=== PATIENT | female | born 1990 | race Caucasian/White ===

== ENCOUNTER → 2021-12-19 13:44 | Outpatient (BNVA) | payer BC, MEDICAID, SELFPAY | PROVIDERS: Family Provider Family Medicine; PCP Family Medicine; Visit Provider Obstetrics & Gynecology | DX: Z34.90 Encounter for supervision of normal pregnancy, unspecified, unspecified trimester (principal) | CPT/HCPCS: 80307; 81000; 82950; 84443; 85025; 86592; 86762; 86803; 86850; 86900; 87086; 87340; 87491; 87591; 87661; 87806; 88175 ==

== ENCOUNTER → 2022-01-12 13:22 | Outpatient (BNVA) | payer BC, MEDICAID, SELFPAY | PROVIDERS: Family Provider Family Medicine; PCP Family Medicine; Visit Provider Obstetrics & Gynecology | DX: O09.899 Supervision of other high risk pregnancies, unspecified trimester (principal); O23.40 Unspecified infection of urinary tract in pregnancy, unspecified trimester; B95.1 Streptococcus, group B, as the cause of diseases classified elsewhere; O34.219 Maternal care for unspecified type scar from previous cesarean delivery; E66.01 Morbid (severe) obesity due to excess calories; Z68.45 Body mass index [BMI] 70 or greater, adult; Z86.19 Personal history of other infectious and parasitic diseases | CPT/HCPCS: 81000; 87086 ==

== ENCOUNTER → 2022-02-12 11:08 | Outpatient (BNVA) | payer BC, MEDICAID, SELFPAY | PROVIDERS: Family Provider Family Medicine; PCP Family Medicine; Visit Provider Obstetrics & Gynecology | DX: O09.899 Supervision of other high risk pregnancies, unspecified trimester (principal); Z3A.00 Weeks of gestation of pregnancy not specified | CPT/HCPCS: 81000 ==

== ENCOUNTER → 2022-03-05 14:43 | Outpatient (BNVA) | payer BC, MEDICAID, SELFPAY | PROVIDERS: Family Provider Family Medicine; PCP Family Medicine; Visit Provider Obstetrics & Gynecology | DX: O09.899 Supervision of other high risk pregnancies, unspecified trimester (principal); Z3A.24 24 weeks gestation of pregnancy | CPT/HCPCS: 76816 ==

== ENCOUNTER → 2022-03-09 09:48 | Outpatient (BNVA) | payer BC, MEDICAID, SELFPAY | PROVIDERS: Family Provider Family Medicine; PCP Family Medicine; Visit Provider Obstetrics & Gynecology | DX: O09.899 Supervision of other high risk pregnancies, unspecified trimester (principal); Z3A.00 Weeks of gestation of pregnancy not specified | CPT/HCPCS: 81000 ==

== ENCOUNTER → 2022-04-06 09:53 | Outpatient (BNVA) | payer BC, MEDICAID, SELFPAY | PROVIDERS: Family Provider Family Medicine; PCP Family Medicine; Visit Provider Obstetrics & Gynecology | DX: O09.899 Supervision of other high risk pregnancies, unspecified trimester (principal); Z3A.00 Weeks of gestation of pregnancy not specified | CPT/HCPCS: 81000; 82950; 85025 ==

== ENCOUNTER → 2022-04-20 11:18 | Outpatient (BNVA) | payer BC, MEDICAID, SELFPAY | PROVIDERS: Family Provider Family Medicine; PCP Family Medicine; Visit Provider Obstetrics & Gynecology | DX: O09.899 Supervision of other high risk pregnancies, unspecified trimester (principal); Z3A.00 Weeks of gestation of pregnancy not specified | CPT/HCPCS: 81000 ==

== ENCOUNTER → 2022-05-04 13:00 | Outpatient (BNVA) | payer BC, MEDICAID, SELFPAY | PROVIDERS: Family Provider Family Medicine; PCP Family Medicine; Visit Provider Obstetrics & Gynecology | DX: O09.899 Supervision of other high risk pregnancies, unspecified trimester (principal); Z3A.00 Weeks of gestation of pregnancy not specified | CPT/HCPCS: 81000 ==

== ENCOUNTER → 2022-05-18 15:00 | Outpatient (BNVA) | payer BC, MEDICAID, SELFPAY | PROVIDERS: Family Provider Family Medicine; PCP Family Medicine; Visit Provider Obstetrics & Gynecology | DX: O09.899 Supervision of other high risk pregnancies, unspecified trimester (principal); Z3A.00 Weeks of gestation of pregnancy not specified | CPT/HCPCS: 81000; 85025 ==

== ENCOUNTER → 2022-06-01 10:00 | Outpatient (BNVA) | payer BC, MEDICAID, SELFPAY | PROVIDERS: Family Provider Family Medicine; PCP Family Medicine; Visit Provider Obstetrics & Gynecology | DX: O09.899 Supervision of other high risk pregnancies, unspecified trimester (principal); Z3A.00 Weeks of gestation of pregnancy not specified | CPT/HCPCS: 81000; 87081 ==

== ENCOUNTER → 2022-06-08 11:00 | Outpatient (BNVA) | payer BC, MEDICAID, SELFPAY | PROVIDERS: Family Provider Family Medicine; PCP Family Medicine; Visit Provider Obstetrics & Gynecology | DX: O09.899 Supervision of other high risk pregnancies, unspecified trimester (principal); Z3A.00 Weeks of gestation of pregnancy not specified | CPT/HCPCS: 81000 ==

== ENCOUNTER → 2022-06-18 10:00 | Outpatient (BNVA) | payer BC, MEDICAID, SELFPAY | PROVIDERS: PCP Family Medicine; Visit Provider Obstetrics & Gynecology | DX: O09.899 Supervision of other high risk pregnancies, unspecified trimester (principal); Z3A.00 Weeks of gestation of pregnancy not specified | CPT/HCPCS: 81000 ==

== ENCOUNTER 2022-06-23 05:14 | Inpatient (IN) | payer BC, MEDICAID, SELFPAY ==
--- NOTE | 2022-06-08 14:20 | PC.SOCIAL ---
PEDRO called Dr. Hastings office and had to leave a message on the nurse line in regards to possible wound vac placement.
--- NOTE | 2022-06-18 09:09 | ANES.PREANE2 ---
Pre-Anesthetic Assessment Height/Weight: Height 1.68 m Operation Date: 06/23/22 07:00 Proposed Procedures p Repeat section 35827, bilateral tubal ligation 53190 O34.219,Z30.2(Bilateral) - Latasha Hastings MD Familial anesthetic complications: None Social No alcohol and No tobacco Exam alert, oriented x 3, clear to auscultation bilaterally and regular rate & rhythm Airway Mallampati: Class III Dentition: full Pulmonary Patient currently having postnasal drip, congestion, and sinus drainage - states allergy related. She has some worry about her ability to breathe while laying flat for the procedure Metabolic Morbid Obesity Anesthetic Plan ASA status: 2 Risk of > 500 ml blood loss (7ml/kg in children): No Other Pertinent Information Previous was emergency and was a general, no history of epidural before Medications/Allergies Home Medications Medication Instructions Recorded Confirmed Last Taken Type PNV 153-FA 400 mcg-om3 35 mg-dha tab PO 12/19/21 06/08/22 Unknown History 25 mg-epa 5 mg-fish oil chew tablet ( Gummies) metoclopramide HCl 5 mg tablet 5 mg PO Q6H PRN nausea and 01/26/22 06/08/22 Unknown Rx (Reglan) vomiting #90 tabs ondansetron HCl 4 mg tablet 4 mg PO Q6H PRN nausea and 01/26/22 06/08/22 Unknown Rx vomiting #30 tabs ferrous sulfate 325 mg (65 mg 325 mg PO DAILY 05/18/22 06/08/22 Unknown History iron) tablet (Iron (ferrous sulfate)) Allergies Allergy/AdvReac Type Severity Reaction Status Date / Time No Known Allergies Allergy Verified 06/08/22 11:00 [facility] Anesthesia Medical History No pertinent past medical history Surgical History History of 2009 History of cholecystectomy 2011 Family History Grandmother Cancer unsure of type Mother Breast cancer Grandfather Diabetes Maternal Other Family history of premature coronary artery disease Denies family history of CAD (coronary artery disease) Clotting disorder Hyperlipidemia Chronic kidney disease (CKD) Bleeding disorder Hypertension Thyroid disease Stroke Data Anesthesia Cardiac Studies: No Data to Display
[2022-06-23] VITALS (92 sets, daily range): BP systolic 115–180; BP diastolic 68–100; PULSE 69–114; RESP 16–20; TEMP 35.9–36.8; O2SAT 89–100
[2022-06-23] MEDS: lactated ringers 1,000 ML 999 ML IV (05:49)
[2022-06-23 05:50] LABS: Basophils % 0.2 %; Eosinophils # 0.1 10^3/uL (0.0-0.8); Eosinophils % 0.7 %; Hematocrit 35.3 % (37.0-47.0); Lymphocytes # 1.7 10^3/uL (0.8-4.8); Lymphocytes % 16.2 %; Mean Corpuscular HGB Conc 31.2 g/dL (30.0-36.0); Mean Corpuscular Hemoglobin 27.7 pg (28.0-34.0); Mean Corpuscular Volume 88.9 fl (81-99); Monocytes # 0.4 10^3/uL (0.2-0.9); Monocytes % 4.1 %; Neutrophils # 8.36 10^3/uL (1.8-7.7); Neutrophils % 78.3 %; Nucleated Red Blood Cells % 0 %; Platelet Count 258 10^3/cmm (130-400); Red Blood Count 3.97 10^6/uL (4.1-5.3); Red Cell Distribution Width 14.6 % (12.1-15.1); White Blood Count 10.7 10^3/uL (4.0-10.0)
[2022-06-23 06:02] LABS: Anion Gap 13.6 (5-19); Blood Urea Nitrogen 11 mg/dL (6-20); Calcium 8.1 mg/dL (8.5-10.5); Carbon Dioxide 23 mmol/L (22-29); Chloride 101 mmol/L (98-107); Glomerular Filtration Rate 115.9 mL/min (90-130); Glucose 85 mg/dL (65-115); Osmolality Calculated 277 mOsm/kg (285-295); Potassium 3.6 mmol/L (3.5-5.1); Sodium 134 mmol/L (136-145)
--- NOTE | 2022-06-23 06:37 | P.ANESUD_ITS ---
Pre-Anesthetic Update Pre-Anesthetic Assessment: Date of Surgery/Procedure: 06/23/22 Proposed Procedure: Operation Date: 06/23/22 07:00 Proposed Procedures p Repeat section 70924, bilateral tubal ligation 09620 O34.219,Z3 0.2(Bilateral) - Latasha Hastings MD Any changes to Pre-Anesthetic Assessment?: No Last Intake: Intake Last Liquid Date 06/22/22 Last Liquid Time 22:00 Last Solid Date 06/22/22 Last Solid Time 19:30 Labs Last 48hrs: Short CBC 06/23/22 Range/Units 05:35 WBC 10.7 H (4.0-10.0) 10^3/ uL Hgb 11.0 L (11.5-15.3) g/dL Hct 35.3 L (37.0-47.0) % MCV 88.9 (81-99) fl Plt Count 258 (130-400) 10^3/c mm Neut % (Auto) 78.3 % Neut # (Auto) 8.36 H (1.8-7.7) 10^3/u L BMP 06/23/22 05:35 Sodium 134 L Potassium 3.6 Chloride 101 Carbon Dioxide 23 BUN 11 Creatinine 0.6 Glucose 85 Calcium 8.1 L Vitals: Temperature 96.6 F L 06/23/22 05:52 Pulse Rate 82 06/23/22 06:23 Pulse Rhythm 06/23/22 05:02 Pulse Strength 3+ Normal 06/23/22 05:02 Respiratory Rate 18 06/23/22 05:51 Respiratory Effort Non-Labored 06/23/22 05:02 Respiratory Depth Normal 06/23/22 05:02 Respiratory Patter n 06/23/22 05:02 Blood Pressure 142/88 06/23/22 06:23 Oxygen Delivery Me thod 06/23/22 05:02 Exam: Pre-Anes Outpt Exam: alert, oriented x 3, clear to auscultation bilaterally and regular rate & rhythm Cardiac Studies: No Data to Display
[2022-06-23] MEDS: metoclopramide 5 mg/mL SDV 2 mL 10 MG IVP (06:55)
[2022-06-23] MEDS: famotidine 20 mg/2 mL INJ IVP (06:56)
[2022-06-23] MEDS: citric acid-sodium citrate 30 mL UDC PO (06:56)
[2022-06-23] MEDS: ceFAZolin 2,000 MG in sodium chloride 0.9% (plus) 50 ML 100 MG IV (07:00)
--- NOTE | 2022-06-23 07:03 | W.PM.OPSUD ---
Surgery/Procedure H&P Update DATE OF PROCEDURE: June 23, 2022 DATE H&P PERFORMED: 06/18/22 H&P UPDATE INFORMATION: I have reviewed H&P completed within last 30 days, I have examined patient prior to procedure and No changes to prior documentation PRIMARY INDICATION FOR PROCEDURE: iup@39 weeks 1 days, previous , desires sterilization, morbid obesity PLANNED PROCEDURE: Operation Date: 06/23/22 07:00 Proposed Procedures p Repeat section 84867, bilateral tubal ligation 43380 O34.219,Z30.2(Bilateral) - Latasha Hastings MD
--- NOTE | 2022-06-23 09:06 | PM.OP ---
Operative Report Date of procedure: June 23, 2022 Pre-op diagnosis: iup@39w1d, GBS positive, history of wound infection, previous , morbid obesity Post-op diagnosis: same Post-op diagnosis: same, delivered Post-op findings: term male . single nuchal cord reduced at the incision Procedure done: repeat with bilateral salpingectomy Specimens removed/disposition: placenta, bilateral fallopian tubes to pathology Surgeon: Latasha Hastings Anesthesia: Other (spinal) Estimated blood loss (mL): 400 IV fluids (mL): 1,100 Urine output (mL): 10 Complications: none Findings: term male in the cephalic presentation, normal appearing uterus, tubes and ovaries Condition: stable Disposition: PACU Procedure: The patient was taken to the operating room where spinal anesthesia was administered and found to be adequate. A Traxi retractor was used to hold the pannus. She was prepped and draped in the normal sterile fashion in the dorsal supine position with a leftward tilt. A Pfannenstiel skin incision was made and carried down to the underlying layer of fascia. The fascia was nicked in the midline and extended laterally with the Mitchell scissors. The fascia was then tented up and the rectus muscles dissected off sharply. The rectus muscles were and the peritoneum entered bluntly with the digit. The peritoneal incision was extended superiorly and inferiorly with good visualization of the bladder. The Rodney O retractor was placed. It was clear of any bowel or omentum. A low transverse uterine incision was made and carried down to the bag of water. The bag of water was ruptured and the uterine incision extended cephalocaudad. The scalp was grasped and brought through the incision. The nose and mouth were bulb suctioned. The shoulders and body delivered atraumatically. The baby was allowed to rest, while being dried, for 1 minute and then the cord was clamped and cut. The baby was handed to the waiting attractions associate. The placenta was delivered by expression. The uterus was exteriorized and cleared of all clots and debris. The uterine incision was closed with 0 Vicryl in a running fashion. A second imbricating layer of 3-0 Monocryl was used to close the uterus. There was excellent hemostasis. The Rodney O retractor was removed. Attention was then turned to the salpingectomy portion of the procedure. The left fallopian tube was grasped with an allis clamp and elevated. Using a cautery device and starting at the cornua, the mesosalpinx was cauterized and divided down to the the fimbria of the fallopian tube. The entire tube was removed. There was excellent hemostasis. The right tube was removed in the same manner. The uterus was returned to the abdomen. The peritoneum was closed with 3-0 Monocryl, incorporating the rectus muscle. The fascia was closed with 0 Vicryl in 2 separate sutures overlapping in the midline. The skin was closed with O-Vicryl in a subcuticular stitch. It was bolstered with steri strips. Apgars on baby 9 at 1 minute and 9 at 5 minutes. weight 7 pounds 3 ounces. Mother and baby were stable post delivery.
--- NOTE | 2022-06-23 10:22 | PC.SOCIAL ---
CM to OB to speak to patient, nurse Alana informed CM that wound vac was not placed, and didnt need CM.
--- NOTE | 2022-06-23 13:48 | ANE.PACU2 ---
Inpatient post-anesthesia follow up: Airway intact: Yes Vital signs: Temperature 97.6 F Pulse Rate 96 Respiratory Rate 16 Blood Pressure 137/78 Pulse Oximetry 100 Oxygen Delivery Me thod Room Air Oxygen Flow Rate Fraction of Inspir ed Oxygen Hydration adequate: Yes Nausea and vomiting: No Pain level: 2 Mental status: Baseline
[2022-06-23] MEDS: dextrose 5%-lactated ringers 1,000 ML 125 ML IV (16:02)
[2022-06-23] MEDS: ketorolac 30 mg/mL INJ IVP ×2 (16:02→22:11)
[2022-06-23] MEDS: ferrous sulfate EC 325 mg Tablet PO (17:44)
[2022-06-23] MEDS: docusate sodium 100 mg Capsule PO (17:45)
[2022-06-23] MEDS: ceFAZolin 3,000 MG in sodium chloride 0.9% (100 ml) 100 ML 200 MG IV (17:50)
[2022-06-23 21:33] LABS: Hematocrit 31.5 % (37.0-47.0); Hemoglobin 9.9 g/dL (11.5-15.3); Mean Corpuscular HGB Conc 31.4 g/dL (30.0-36.0); Mean Corpuscular Hemoglobin 28.2 pg (28.0-34.0); Mean Corpuscular Volume 89.7 fl (81-99); Platelet Count 262 10^3/cmm (130-400); Red Blood Count 3.51 10^6/uL (4.1-5.3); Red Cell Distribution Width 14.8 % (12.1-15.1)
[2022-06-24 02:35] VITALS: BP 123/91; PULSE 94; TEMP 36.7
[2022-06-24] MEDS: ceFAZolin 3,000 MG in sodium chloride 0.9% (100 ml) 100 ML 200 MG IV (03:40)
[2022-06-24] MEDS: ketorolac 30 mg/mL INJ IVP (04:27)
--- NOTE | 2022-06-24 06:08 | PC.NURSE ---
this nurse observed pt sleeping while holding baby in the chair. woke pt and advised that dad needed to take baby or baby needed to be placed in crib. reeducated on safe sleeping and baby was placed in crib.
[2022-06-24] MEDS: prenatal vitamin Capsule 1 CAP PO (08:37)
[2022-06-24] MEDS: ferrous sulfate EC 325 mg Tablet PO ×2 (08:37→17:54)
--- NOTE | 2022-06-24 08:37 | P.PN_ITS ---
Subjective Subjective: The patient has done well overnight. The traxi came off. She has been able to ambulate. Pain is well controlled Vitals/I&O/Wt Last Vital Signs Temp 98.0 F 06/24/22 02:35 Pulse 94 06/24/22 02:35 Resp 18 06/23/22 23:00 BP 123/91 06/24/22 02:35 Pulse Ox 92 06/23/22 15:25 O2 Del Method 06/23/22 17:49 06/23/22 06/24/22 06/24/22 22:59 06:59 14:59 Intake Total 100 / 200 Output Total 250 / 480 400 / 880 Balance -150 / -280 -400 / -680 Weight last 48 hrs Weight 470 lb Physical Exam Const: COMMON NORMALS: no acute distress, patient oriented x3 and alert GENERAL APPEARANCE: cooperative, comfortable, well kempt and well developed ORIENTATION/CONSCIOUSNESS: Yes awake, Yes oriented to person, Yes oriented to place and Yes oriented to time Resp: COMMON NORMALS: normal respiratory effort EFFORT & INSPECTION: Yes able to speak in complete sentences GI: COMMON NORMALS: Soft to palpation and non-tender PALPATION: Yes Soft to palpation Extremity: COMMON NORMALS: no calf tenderness Neuro: COMMON NORMALS: patient oriented x3 SENSORIUM/ORIENTATION: Yes alert, Yes oriented to person, Yes oriented to place and Yes oriented to time Psych: APPEARANCE: Yes well kempt Urinary Catheter Management: Gallagher: Cath Placed During This Visit: yes, but has since been removed by the nurse Reason for Continuing Indwelling Catheter: Decision to DC Catheter Urinary Catheter Date of Insertion: 06/23/22 Urinary Catheter Time of Insertion: 07:20 Date Urinary Catheter Removed: 06/24/22 Time Urinary Catheter Discontinued: 02:40 Data 06/23/22 21:25 06/23/22 05:35 A&P Assessment and plan (1) Postoperative state: doing well plan for silver dressing to be placed today. Traxi may be removed. Encourage ambulation today likely home tomorrow Attestations Medical Necessity Statement*: The patient had a repeat yesterday. S he will be here at least another night. Coding Level of Care Code Acute Director Of Loss Prevention for Mariola Odonnell Diagnoses Postoperative state Z98.890
[2022-06-24 08:39] VITALS: BP 121/64; PULSE 94
[2022-06-24 08:40] VITALS: TEMP 36.8
[2022-06-24] MEDS: HYDROcodone-acetaminophen 5-325 mg Tablet PO ×2 (12:18→19:52)
[2022-06-24] MEDS: ibuprofen 800 mg tablet PO ×2 (15:15→20:57)
[2022-06-24 16:44] VITALS: BP 134/89; PULSE 88
[2022-06-24 16:46] VITALS: TEMP 36.8
[2022-06-24] MEDS: simethicone 80 mg Chew PO (17:54)
[2022-06-24 21:00] VITALS: BP 130/73; PULSE 95
[2022-06-25 03:48] VITALS: BP 142/86; PULSE 91
[2022-06-25 03:53] VITALS: RESP 16; TEMP 36.9
--- NOTE | 2022-06-25 06:22 | PM.DCS ---
Discharge Providers Date of Admission: 06/23/22 05:14 Date of Discharge: June 25, 2022 Attending Provider at Admission: Latasha Hastings MD Attending Provider at Discharge: Latasha Hastings MD Primary Care Provider: Aleks Oviedo MD Diagnoses at Discharge Discharge Diagnosis (1) Postoperative state: Status: Acute Reason for Visit Reason for Visit: pre reg and pre op Hospital Course Hospital Course The patient was admitted for a repeat and bilateral tubal ligation. She has a previous history of wound infection. A silver dressing was placed on the incision on POD#1 On POD#2, the patient wanted to be discharged home, but was still very sedentary. She only got up from her chair to use the bathroom. I decided to placed her on anticoagulation for the period to avoid a possible DVT. I explained to the patient the importance of taking the shot and that it was once daily. We had the conversation about breast feeding and that if she stopped at some time in the period, we could change to a pill. She is currently and supplementing with formula. She verbalized understanding and was given a dose of lovenox prior to discharge. Physical Exam Const: COMMON NORMALS: no acute distress, patient oriented x3 and alert GENERAL APPEARANCE: cooperative, comfortable, well kempt and well developed ORIENTATION/CONSCIOUSNESS: Yes awake, Yes oriented to person, Yes oriented to place and Yes oriented to time Resp: COMMON NORMALS: normal respiratory effort GI: COMMON NORMALS: Soft to palpation and non-tender PALPATION: Yes Soft to palpation Extremity: COMMON NORMALS: no calf tenderness Neuro: COMMON NORMALS: patient oriented x3 SENSORIUM/ORIENTATION: Yes alert, Yes oriented to person, Yes oriented to place and Yes oriented to time Psych: APPEARANCE: Yes well kempt Urinary Catheter Management: Gallagher: Cath Placed During This Visit: yes, but has since been removed by the nurse Reason for Continuing Indwelling Catheter: Decision to DC Catheter Urinary Catheter Date of Insertion: 06/23/22 Urinary Catheter Time of Insertion: 07:20 Date Urinary Catheter Removed: 06/24/22 Time Urinary Catheter Discontinued: 02:40 Discharge Data Studies Completed and Pending Completed Studies During Hospitalization Category Date Time Status Pathology: Surgical [PTH] Routine Pth 06/23/22 09:14 Completed Laboratory Results WBC 12.0 10^3/uL (4.0-10.0) H 06/23/22 21:25 RBC 3.51 10^6/uL (4.1-5.3) L 06/23/22 21:25 Hgb 9.9 g/dL (11.5-15.3) L 06/23/22 21:25 Hct 31.5 % (37.0-47.0) L 06/23/22 21:25 MCV 89.7 fl (81-99) 06/23/22 21:25 MCH 28.2 pg (28.0-34.0) 06/23/22 21:25 MCHC 31.4 g/dL (30.0-36.0) 06/23/22 21:25 RDW 14.8 % (12.1-15.1) 06/23/22 21:25 Plt Count 262 10^3/cmm (130-400) 06/23/22 21:25 MPV 11.0 fL (7.4-10.4) H 06/23/22 21:25 Neut % (Auto) 78.3 % 06/23/22 05:35 Lymph % (Auto) 16.2 % 06/23/22 05:35 [place] % (Auto) 4.1 % 06/23/22 05:35 Eos % (Auto) 0.7 % 06/23/22 05:35 Baso % (Auto) 0.2 % 06/23/22 05:35 Neut # (Auto) 8.36 10^3/uL (1.8-7.7) H 06/23/22 05:35 Lymph # (Auto) 1.7 10^3/uL (0.8-4.8) 06/23/22 05:35 [place] # (Auto) 0.4 10^3/uL (0.2-0.9) 06/23/22 05:35 Eos # (Auto) 0.1 10^3/uL (0.0-0.8) 06/23/22 05:35 Baso # (Auto) 0.0 10^3/uL (0.0-0.1) 06/23/22 05:35 Nucleated RBC % (auto) 0 % 06/23/22 05:35 Nucleated RBCs # 0.0 /100WBC 06/23/22 05:35 Sodium 134 mmol/L (136-145) L 06/23/22 05:35 Potassium 3.6 mmol/L (3.5-5.1) 06/23/22 05:35 Chloride 101 mmol/L (98-107) 06/23/22 05:35 Carbon Dioxide 23 mmol/L (22-29) 06/23/22 05:35 Anion Gap 13.6 (5-19) 06/23/22 05:35 BUN 11 mg/dL (6-20) 06/23/22 05:35 Creatinine 0.6 mg/dL (0.5-0.9) 06/23/22 05:35 GFR Calculation 115.9 mL/min (90-130) 06/23/22 05:35 Glucose 85 mg/dL (65-115) 06/23/22 05:35 Calculated Osmolality 277 mOsm/kg (285-295) L 06/23/22 05:35 Calcium 8.1 mg/dL (8.5-10.5) L 06/23/22 05:35 Blood Type O Positive 06/23/22 05:35 Rho(D) Type Positive 06/23/22 05:35 Vitals Last Vital Signs Temp 98.4 F 06/25/22 03:53 Pulse 91 06/25/22 03:48 Resp 16 06/25/22 03:53 BP 142/86 06/25/22 03:48 Pulse Ox 92 06/23/22 15:25 O2 Del Method 06/23/22 17:49 Discharge Plan Discharge Patient Disposition: Home Condition: Stable Prescriptions: New ibuprofen 800 mg Tablet 800 mg PO TID Qty: 30 0RF hydrocodone-acetaminophen 5-325 mg Tablet 1 tab PO Q4H PRN (Reason: Moderate To Severe Pain) Qty: 30 0RF docusate sodium 100 mg Capsule 100 mg PO BID Qty: 60 0RF enoxaparin 40 mg/0.4 mL Syringe 40 mg SUBCUT Q24H Qty: 20 0RF Continued Gummies 400 mcg-35 mg- 25 mg-5 mg tablet,chewable 1 tab PO DAILY ferrous sulfate [Iron (ferrous sulfate)] 325 mg (65 mg iron) tablet 325 mg PO DAILY ondansetron HCl 4 mg tablet 4 mg PO Q6H PRN (Reason: nausea and vomiting) Qty: 30 2RF metoclopramide HCl [Reglan] 5 mg tablet 5 mg PO Q6H PRN (Reason: nausea and vomiting) Qty: 90 2RF Rx Instructions: Take medication on schedule every 6 hours Discharge Orders: Discharge Order (Routine); Ordered 06/25/22 Ordered By: Latasha Hastings Patient Instructions: Opioid Safety Assessment: postop state Plan of Treatment: discharge home today lovenox 40 mg daily call with any questions or concerns follow up in 1 week for incision check and dressing removal. Discharge Attestations Time Spent in Discharge Care*: greater than 30 min Quality Metrics Clinical Quality Measures [ No reported AMI, CVA or VTE this stay] Coding Level of Care Code Acute g FW DC note Diagnoses Postoperative state Z98.890
[2022-06-25] MEDS: HYDROcodone-acetaminophen 5-325 mg Tablet PO (07:20)
[2022-06-25] MEDS: prenatal vitamin Capsule 1 CAP PO (09:50)
[2022-06-25] MEDS: docusate sodium 100 mg Capsule PO (09:50)
[2022-06-25] MEDS: enoxaparin 40 mg/0.4 mL Syringe SUBCUT (09:50)
[2022-06-25] MEDS: ibuprofen 800 mg tablet PO (09:50)
[2022-06-25] MEDS: ferrous sulfate EC 325 mg Tablet PO (09:50)
[2022-06-25 10:45] VITALS: BP 146/77; PULSE 136; RESP 17; TEMP 37.3
[2022-06-25 10:46] VITALS: BP 146/77; PULSE 136
== END 2022-06-25 10:55 | disposition home or self-care (01) | DRG 785 ==
PROVIDERS: Admitting Provider Obstetrics & Gynecology; PCP Family Medicine; Visit Provider Obstetrics & Gynecology
PROC: 10D00Z1 Extraction of Products of Conception, Low, Open Approach (ICD-10-PCS; CPT 59514; principal; 2022-06-23 07:00)
DX: O34.211 Maternal care for low transverse scar from previous cesarean delivery (principal); O99.824 Streptococcus B carrier state complicating childbirth; O99.214 Obesity complicating childbirth; E66.01 Morbid (severe) obesity due to excess calories; O69.81X0 Labor and delivery complicated by cord around neck, without compression, not applicable or unspecified; Z3A.39 39 weeks gestation of pregnancy; Z37.0 Single live birth; Z86.19 Personal history of other infectious and parasitic diseases; Z30.2 Encounter for sterilization
CPT/HCPCS: 36415; 51702; 59025; 59409; 80048; 85025; 85027; 86900; 88302; 96372; 96374; 96376; J0690; J1650; J1885; J2274; J2370; J2590; J2765; J3010; J3490; J7120; J7121

== ENCOUNTER 2022-07-11 17:01 | Inpatient (IN) | payer BC, SELFPAY ==
[2022-07-11 17:09] VITALS: BP 146/90; PULSE 110; RESP 16; TEMP 37.4; O2SAT 99
--- NOTE | 2022-07-11 19:26 | W.ED.GENADLT ---
HPI - General Adult General: Chief complaint: General Medical Stated complaint: possible infection of surgical site Time Seen by Provider: 07/11/22 19:25 History of Present Illness: Ms. Richards is a 32-year-old lady with significant past medical history of morbid obesity presenting to the emergency department for concern over postoperative wound infection. The patient underwent repeat section with bilateral salpingectomy on 06/23. She does have a history of being GBS positive and history of wound infection. She was evaluated on 06/29 and diagnosed with postoperative hematoma. Over the past 2 to 3 days she has noticed increased drainage, redness, pain, and foul-smelling odor. She denies fevers or associated signs of systemic illness. Intensity symptoms is moderate to severe. Course is worsened. She has not had significant improvement with NSAIDs or acetaminophen. No other specific changes in health, exacerbating, or alleviating factors identified. Onset (ago): day(s) Location: abdomen Severity: moderate Pain Consistency: constant Exacerbating factors: movement Associated symptoms: Reports fevers/chills, malaise and other Review of Systems General: Reports: 10 or more systems reviewed and unremarkable except in HPI and below Const: Reports: malaise PFSH ED PFSH: Medical History GBS (group B Streptococcus carrier), +RV culture, currently GBS (group B streptococcus) UTI complicating History of wound infection No pertinent past medical history Postoperative wound infection Supervision of other high-risk Surgical History History of 2009 History of cholecystectomy 2012 Previous delivery affecting Family History Grandmother Cancer unsure of type Mother Breast cancer Grandfather Diabetes Maternal Other Family history of premature coronary artery disease Denies family history of CAD (coronary artery disease) Clotting disorder Hyperlipidemia Chronic kidney disease (CKD) Bleeding disorder Hypertension Thyroid disease Stroke Physical Exam Const: COMMON NORMALS: alert GENERAL APPEARANCE: cooperative, well developed and ill appearing HENMT: COMMON NORMALS: normocephalic and atraumatic HEAD & SCALP: normocephalic and atraumatic Eye: COMMON NORMALS: conjunctivae normal CONJUNCTIVA: Yes conjunctivae normal SCLERA: sclerae normal Neck/C-Spine: COMMON NORMALS: supple GENERAL: Yes trachea midline Resp: COMMON NORMALS: clear to auscultation bilaterally EFFORT & INSPECTION: Yes able to speak in complete sentences AUSCULTATION: clear to auscultation bilaterally Cardio: COMMON NORMALS: regular rhythm RATE: tachycardic RHYTHM: regular rhythm GI: COMMON NORMALS: Soft to palpation PALPATION: Yes Soft to palpation, Yes Tenderness to palpation present (GI), No Guarding due to palpation present (GI) and No Rigid due to palpation OTHER: incision with areas of superficial dehiscence with purulent brown drainage and skin induration with erythema concerning for wound infection. There is no evidence of remote peritonitis or acute surgical abdomen. No evidence of deep layer dehiscence. Extremity: GENERAL: Yes normal exam except as noted and No edema Neuro: COMMON NORMALS: moves all extremities SENSORIUM/ORIENTATION: Yes alert and No Orientation impaired Psych: COMMON NORMALS: mental status grossly normal and Normal thought process present THOUGHT PROCESS: Normal thought process present Course Vital Signs: Vital signs: Vital Signs Temperature 98.6 F 07/13/22 03:58 Pulse Rate 97 07/13/22 13:29 Respiratory Rate 15 07/13/22 03:58 Blood Pressure 144/79 07/13/22 13:29 Pulse Oximetry 97 07/13/22 03:54 Oxygen Delivery Me thod 07/11/22 23:43 MDM - General Adult Medical Decision Making 32-year-old lady with history of morbid obesity presenting for concern over postoperative wound infection. Clinical exam as above. Patient is tachycardic but no evidence of acute surgical abdomen. Labs with no leukocytosis, normocytic anemia which is mildly worse than prior, normal platelet count. Metabolic panel with perhaps mild dehydration though similar to prior. CT obtained given exam findings and clinical history. There is an abscess in the subcutaneous tissue down to the rectus abdominis muscle with cellulitis. Patient treated with IV fluids and broad-spectrum antibiotics. Also given antiemetic and antipyretic. Discussed case with BELLING MACHINE OPERATOR on-call and patient will be admitted to the BELLING MACHINE OPERATOR service for postoperative infection. The results of ED evaluation were discussed with the patient including plan for admission due to requirement for level of care not available if discharged to prevent significant worsening/deterioration. Patient agreeable with plan. Medical Records I reviewed the patient's medical records. Lab Data I reviewed the patient's lab results. 07/12/22 04:03 07/12/22 04:03 Radiology Impressions Abdomen/Pelvis CT 07/11/22 19:34 IMPRESSION: 1. There is an abscess in the subcutaneous soft tissues of the lower abdomen/pelvis extending into the underlying rectus abdominus muscle with adjacent soft tissue cellulitis as described above. 2. Splenomegaly. Laboratory Results WBC 9.9 10^3/uL (4.0-10.0) 07/11/22 19:44 RBC 3.19 10^6/uL (4.1-5.3) L 07/11/22 19:44 Hgb 8.7 g/dL (11.5-15.3) L 07/11/22 19:44 Hct 28.5 % (37.0-47.0) L 07/11/22 19:44 MCV 89.3 fl (81-99) 07/11/22 19:44 MCH 27.3 pg (28.0-34.0) L 07/11/22 19:44 MCHC 30.5 g/dL (30.0-36.0) 07/11/22 19:44 RDW 14.9 % (12.1-15.1) 07/11/22 19:44 Plt Count 385 10^3/cmm (130-400) 07/11/22 19:44 MPV 10.1 fL (7.4-10.4) 07/11/22 19:44 Neut % (Auto) 64.6 % 07/11/22 19:44 Lymph % (Auto) 22.6 % 07/11/22 19:44 [place] % (Auto) 10.0 % 07/11/22 19:44 Eos % (Auto) 1.9 % 07/11/22 19:44 Baso % (Auto) 0.4 % 07/11/22 19:44 Neut # (Auto) 6.38 10^3/uL (1.8-7.7) 07/11/22 19:44 Lymph # (Auto) 2.2 10^3/uL (0.8-4.8) 07/11/22 19:44 [place] # (Auto) 1.0 10^3/uL (0.2-0.9) H 07/11/22 19:44 Eos # (Auto) 0.2 10^3/uL (0.0-0.8) 07/11/22 19:44 Baso # (Auto) 0.0 10^3/uL (0.0-0.1) 07/11/22 19:44 Nucleated RBC % (auto) 0 % 07/11/22 19:44 Nucleated RBCs # 0.0 /100WBC 07/11/22 19:44 Sodium 135 mmol/L (136-145) L 07/11/22 19:44 Potassium 3.7 mmol/L (3.5-5.1) 07/11/22 19:44 Chloride 99 mmol/L (98-107) 07/11/22 19:44 Carbon Dioxide 25 mmol/L (22-29) 07/11/22 19:44 Anion Gap 14.7 (5-19) 07/11/22 19:44 BUN 9 mg/dL (6-20) 07/11/22 19:44 Creatinine 0.7 mg/dL (0.5-0.9) 07/11/22 19:44 GFR Calculation 97.0 mL/min (90-130) 07/11/22 19:44 Glucose 121 mg/dL (65-115) H 07/11/22 19:44 Calculated Osmolality 280 mOsm/kg (285-295) L 07/11/22 19:44 Lactic Acid 0.8 mmol/L (0.5-2.2) 07/11/22 19:44 Calcium 8.6 mg/dL (8.5-10.5) 07/11/22 19:44 Total Bilirubin 0.4 mg/dL (0.15-1.2) 07/11/22 19:44 AST 13 U/L (0-32) 07/11/22 19:44 ALT 15 U/L (0-33) 07/11/22 19:44 Alkaline Phosphatase 90 U/L (35-105) 07/11/22 19:44 Total Protein 7.0 g/dL (6.6-8.7) 07/11/22 19:44 Albumin 3.4 g/dL (3.5-5.2) L 07/11/22 19:44 Globulin 3.6 g/dL (1.3-4.6) 07/11/22 19:44 Critical Care Time Critical Care Time: Critical Care Time: Yes Total Critical Care Time: 35 Attestation: Due to a high probability of clinically significant, possibly life threatening deterioration, the patient required my highest level of attention and preparedness to intervene emergently and I personally spent this critical care time directly and personally managing the patient. This critical care time included obtaining a history; examining the patient; pulse oximetry; ordering and review of laboratory and imaging studies; arranging urgent treatment with development of a management plan; evaluation of patient's response to treatment; frequent reassessment; and, discussions with other providers as applicable. It was exclusive of separately billable procedures. Primary system involved is infectious disease complicated by recent surgical history and morbid obesity. Discharge Plan Discharge Patient Disposition: Admitted As Inpatient Admit Provider: Yesica Brush Clinical Impression: Postoperative wound infection, Morbid obesity with BMI of 70 and over, adult Condition: Stable Discharge Diet: Regular Discharge Activity: Increase activity as tolerated Coding Level of Care Code ED Marine Welder for Mariola Odonnell
--- NOTE | 2022-07-11 19:34 | CTR_ITS ---
PROCEDURE INFORMATION: Exam: CT Abdomen And Pelvis With Contrast Exam date and time: 07/11/2022 8:12 PM Age: 32 years old Clinical indication: Other: Post op x2.5 weeks, drainage, cellulitis; Prior surgery; Surgery date: <1 month; Patient HX: 2.5 weeks post op ; Additional info: Post c section drainage/cellulitis, eval deep abscess TECHNIQUE: Imaging protocol: Computed tomography of the abdomen and pelvis with contrast. Radiation optimization: All CT scans at this facility use at least one of these dose optimization techniques: automated exposure control; mA and/or kV adjustment per patient size (includes targeted exams where dose is matched to clinical indication); or iterative reconstruction. Contrast material: OMNI 350; Contrast volume: 100 ml; Contrast route: INTRAVENOUS (IV); COMPARISON: US OB follow up [facility] 06/09/2022 10:13 AM RADIATION DOSE METRICS: Total DLP (mGy-cm): 1343.6 FINDINGS: Liver: Normal. No mass. Gallbladder and bile ducts: The gallbladder has been removed. Pancreas: Normal. No ductal dilation. Spleen: The spleen is enlarged measuring 15.2 centimetres. Adrenal glands: Normal. No mass. Kidneys and ureters: Normal. No hydronephrosis. Stomach and bowel: Unremarkable. No obstruction. No mucosal thickening. Appendix: No evidence of appendicitis. Intraperitoneal space: Unremarkable. No free air. No significant fluid collection. Vasculature: Unremarkable. No abdominal aortic aneurysm. Lymph nodes: Unremarkable. No enlarged lymph nodes. Urinary bladder: Unremarkable as visualized. Reproductive: There is artifact obscuring portions of the pelvis. The uterus is not well seen. Bones/joints: Unremarkable. No acute fracture. Soft tissues: There is complex fluid density and air in the subcutaneous soft tissues adjacent to the incision site extending into the underlying rectus abdominus muscles measuring 20.6 x 3.7 cm in the transverse/AP dimensions, consistent with an abscess formation. Overlying skin surface in this region is obscured secondary to the patient's pannus formation. There is skin thickening in this region and adjacent cellulitis. Underlying distal rectus abdominus muscles are heterogeneous and contain foci of air. CT/CT abdomen pelvis w con* [id number] IMPRESSION: 1. There is an abscess in the subcutaneous soft tissues of the lower abdomen/pelvis extending into the underlying rectus abdominus muscle with adjacent soft tissue cellulitis as described above. 2. Splenomegaly.
[2022-07-11 19:58] LABS: Basophils % 0.4 %; Eosinophils # 0.2 10^3/uL (0.0-0.8); Eosinophils % 1.9 %; Hematocrit 28.5 % (37.0-47.0); Hemoglobin 8.7 g/dL (11.5-15.3); Lymphocytes # 2.2 10^3/uL (0.8-4.8); Lymphocytes % 22.6 %; Mean Corpuscular HGB Conc 30.5 g/dL (30.0-36.0); Mean Corpuscular Hemoglobin 27.3 pg (28.0-34.0); Mean Corpuscular Volume 89.3 fl (81-99); Mean Platelet Volume 10.1 fL (7.4-10.4); Neutrophils # 6.38 10^3/uL (1.8-7.7); Neutrophils % 64.6 %; Nucleated Red Blood Cells % 0 %; Platelet Count 385 10^3/cmm (130-400); Red Blood Count 3.19 10^6/uL (4.1-5.3); Red Cell Distribution Width 14.9 % (12.1-15.1); White Blood Count 9.9 10^3/uL (4.0-10.0)
[2022-07-11] MEDS: iohexol 350 mg/mL 500 mL Btl (per mL) IV (20:15)
[2022-07-11 20:19] LABS: Alanine Aminotransferase 15 U/L (0-33); Albumin Level 3.4 g/dL (3.5-5.2); Alkaline Phosphatase 90 U/L (35-105); Anion Gap 14.7 (5-19); Aspartate Amino Transferase 13 U/L (0-32); Blood Urea Nitrogen 9 mg/dL (6-20); Calcium 8.6 mg/dL (8.5-10.5); Carbon Dioxide 25 mmol/L (22-29); Chloride 99 mmol/L (98-107); Globulin 3.6 g/dL (1.3-4.6); Glucose 121 mg/dL (65-115); Osmolality Calculated 280 mOsm/kg (285-295); Potassium 3.7 mmol/L (3.5-5.1); Sodium 135 mmol/L (136-145); Total Bilirubin 0.4 mg/dL (0.15-1.2)
[2022-07-11 20:20] LABS: Lactic Sepsis W/Reflex 0.8 mmol/L (0.5-2.2)
[2022-07-11 20:30] VITALS: BP 148/84; PULSE 98; RESP 18; O2SAT 98
[2022-07-11] MEDS: piperacillin-tazobactam 4.5 GM in sodium chloride 0.9% (plus) 50 ML IV (21:11)
[2022-07-11 21:36] VITALS: BP 154/99; PULSE 93; RESP 16; O2SAT 99
[2022-07-11 22:00] VITALS: BP 144/84; PULSE 100; RESP 16; O2SAT 98
[2022-07-11 23:06] VITALS: BMI 75.8
[2022-07-11 23:20] VITALS: BP 133/56; PULSE 94
[2022-07-11 23:35] VITALS: TEMP 36.7
[2022-07-12 04:09] LABS: Basophils % 0.4 %; Eosinophils # 0.2 10^3/uL (0.0-0.8); Eosinophils % 1.8 %; Hemoglobin 8.6 g/dL (11.5-15.3); Lymphocytes # 1.9 10^3/uL (0.8-4.8); Lymphocytes % 20.6 %; Mean Corpuscular HGB Conc 30.7 g/dL (30.0-36.0); Mean Corpuscular Volume 88.1 fl (81-99); Monocytes # 0.9 10^3/uL (0.2-0.9); Monocytes % 10.2 %; Neutrophils # 5.95 10^3/uL (1.8-7.7); Neutrophils % 66.3 %; Nucleated Red Blood Cells % 0 %; Platelet Count 368 10^3/cmm (130-400); Red Blood Count 3.18 10^6/uL (4.1-5.3); Red Cell Distribution Width 14.9 % (12.1-15.1)
[2022-07-12 04:11] VITALS: BP 135/63; PULSE 96
[2022-07-12 04:13] VITALS: TEMP 37.1; O2SAT 98
[2022-07-12 04:43] LABS: Alanine Aminotransferase 13 U/L (0-33); Albumin Level 3.5 g/dL (3.5-5.2); Alkaline Phosphatase 86 U/L (35-105); Aspartate Amino Transferase 13 U/L (0-32); Blood Urea Nitrogen 7 mg/dL (6-20); Calcium 8.4 mg/dL (8.5-10.5); Carbon Dioxide 25 mmol/L (22-29); Chloride 102 mmol/L (98-107); Globulin 3.2 g/dL (1.3-4.6); Glucose 100 mg/dL (65-115); Osmolality Calculated 282 mOsm/kg (285-295); Sodium 137 mmol/L (136-145); Total Bilirubin 0.3 mg/dL (0.15-1.2); Total Protein 6.7 g/dL (6.6-8.7)
[2022-07-12 04:52] LABS: Anion Gap 13.9 (5-19); Potassium 3.9 mmol/L (3.5-5.1)
[2022-07-12] MEDS: piperacillin-tazobactam 4.5 GM in sodium chloride 0.9% (plus) 50 ML IV ×2 (06:07→15:43)
[2022-07-12] MEDS: vancomycin 1,500 MG/300 ML PIGGYBACK 200 MG IV ×3 (06:38→22:14)
--- NOTE | 2022-07-12 07:05 | PC.NURSE ---
This nurse, Gracie Flores RN, Kierra COTTRELL, and Valencia WARREN visualized the incision at this time. The previous dressing of 2 telfa pads and 2 ABD pads were removed and saturated with dark brown and black thin fluid. Upon removal of the dressing, a large amount of the same colored fluid was seeping from the incision site. This nurse noted a foul smell to the fluid and incision site. This nurse cleaned the site and dried it. 2 telfa pads and 2 ABD pads were placed in a sterile fashion to the site and secured.
--- NOTE | 2022-07-12 12:58 | PM.OPHPUD ---
Labor & Delivery H&P Update Date of Procedure: July 12, 2022 Date H&P Performed: 06/18/22 H&P update information: I have reviewed H&P completed within last 30 days (32-year-old female admitted after being seen in the emergency room with postop abscess.) Admission Diagnosis: Postop wound abscess Morbid obesity Other information: Patient seen this a.m. after nursing staff complained of wound with malodorous discharge. Dressing removed and wound cleaned with peroxide and packed with iodoform gauze. Wound probed and affected area extensive (length of incision),but fascia appears intact. Discussed with General surgeon, he recommended cleaning and packing, but advised not to totally open for wound vac. Related Problem List Diagnoses (1) Postoperative wound infection: (2) Postoperative hematoma: (3) History of wound infection: (4) Morbid obesity with BMI of 70 and over, adult:
[2022-07-12 13:19] VITALS: BP 140/73; PULSE 96
[2022-07-12] MEDS: acetaminophen 325 mg Tablet 650 MG PO (13:43)
[2022-07-12 15:36] VITALS: BP 132/78; PULSE 104; TEMP 36.8
[2022-07-12 23:12] VITALS: BP 136/78; PULSE 93
--- NOTE | 2022-07-13 00:06 | P.PN_ITS ---
IMPROVEMENT NURSE Subjective Subjective: Interval history: Pt doing well, no complaints, sitting at bedside with baby. Discussed wound care. Pt understands. Vitals/I&O/Wt Last Vital Signs Temp 98.2 F 07/12/22 15:36 Pulse 93 07/12/22 23:12 Resp 16 07/11/22 22:00 BP 136/78 07/12/22 23:12 Pulse Ox 98 07/12/22 04:13 O2 Del Method 07/11/22 23:43 07/12/22 07/12/22 07/13/22 14:59 22:59 06:59 Intake Total 350 / 350 1300 / 1650 Balance 350 / 350 1300 / 1650 Weight last 48 hrs Weight 213.188 kg Weight 213.188 kg Physical Exam Back/Pelvis: OTHER: Abd- soft, Incision packing removed with small amount of brownish discharge. Packing was saturated. Wound cleaned with H2O2 with much less discharge and clots noted. Wound repacked and bandage applied. Data 07/12/22 04:03 07/12/22 04:03 Micro: Microbiology 07/11/22 19:37 Blood Culture - Preliminary Blood NEGATIVE TO DATE 07/11/22 19:44 Blood Culture - Preliminary Blood NEGATIVE TO DATE 07/11/22 19:46 Gram Stain - Final Other Source A&P Assessment and plan (1) Postoperative wound infection: A. S/p Repeat C/section P. Continue present care. (2) Postoperative hematoma: (3) History of wound infection: (4) Morbid obesity with BMI of 70 and over, adult: Attestations Medical Necessity Statement*: Continued need for Wound care. Coding Level of Care Code Acute Code for Chg Fwd Diagnoses Postoperative wound infection T81.49XA Postoperative hematoma History of wound infection Z86.19 Morbid obesity with BMI of 70 and over, adult E66.01; Z68.45
[2022-07-13 00:13] LABS: Vancomycin Trough 40.3 ug/mL (10-15)
[2022-07-13] MEDS: piperacillin-tazobactam 4.5 GM in sodium chloride 0.9% (plus) 50 ML IV ×2 (00:23→09:15)
[2022-07-13 03:54] VITALS: BP 119/61; PULSE 89; O2SAT 97
[2022-07-13 03:58] VITALS: RESP 15; TEMP 37
[2022-07-13 06:21] LABS: Basophils % 0.4 %; Eosinophils # 0.4 10^3/uL (0.0-0.8); Eosinophils % 4.8 %; Hematocrit 27.2 % (37.0-47.0); Hemoglobin 8.1 g/dL (11.5-15.3); Lymphocytes # 1.7 10^3/uL (0.8-4.8); Lymphocytes % 22.6 %; Mean Corpuscular HGB Conc 29.8 g/dL (30.0-36.0); Mean Corpuscular Hemoglobin 26.5 pg (28.0-34.0); Mean Corpuscular Volume 88.9 fl (81-99); Mean Platelet Volume 9.7 fL (7.4-10.4); Monocytes # 0.8 10^3/uL (0.2-0.9); Monocytes % 10.9 %; Neutrophils # 4.46 10^3/uL (1.8-7.7); Neutrophils % 60.6 %; Nucleated Red Blood Cells % 0 %; Platelet Count 371 10^3/cmm (130-400); Red Blood Count 3.06 10^6/uL (4.1-5.3); White Blood Count 7.4 10^3/uL (4.0-10.0)
[2022-07-13 06:46] LABS: Vancomycin Trough 16.3 ug/mL (10-15)
[2022-07-13] MEDS: vancomycin 1,500 MG/300 ML PIGGYBACK 200 MG IV (07:42)
[2022-07-13 09:17] VITALS: BP 133/73; PULSE 91
--- NOTE | 2022-07-13 11:09 | PM.OBGYDC ---
Discharge Providers [employer] TECHNICIAN Date of Admission: 07/11/22 22:12 Date of Discharge: 07/13/22 Attending Provider at Admission: Yesica Brush DO Attending Provider at Discharge: Yesica Brush DO Primary Care Provider: Latasha Hastings MD Diagnoses at Discharge Discharge Diagnosis (1) Postoperative wound infection: Status: Acute (2) Postoperative hematoma: Details from hospital stay: Pt seen for wound care, much less discharge but it did stain dressing thru the night. No odor noted today. Much improved. Cleaned with peroxide and pack with Iodoform guze. Discussed home health for continued wound care. Pt understands. Status: Acute (3) History of wound infection: Status: Acute (4) Morbid obesity with BMI of 70 and over, adult: Status: Acute Reason for Visit Reason for Visit: possible infection of surgical site Hospital Course Hospital Course 32-year-old female admitted with complaints of surgical wound infection. S/p repeat 06/23/2022. Patient had stated wound has been draining x2 weeks and worsened. During this hospital stay the wound has been cleaned and packed with iodoform gauze. Today it is much improved, patient will be discharged home and wound care will be continued by home health. Patient has remained afebrile with a normal white count. Abdomen?soft, open area of incision =4-5 cm. With Q tips probing entire course of underlying SQ fat area. Ext- no valentín. History History History 8 Term 2 0 Miscarriages/Ectopic 6 Living Children 2 Discharge Data Studies Completed and Pending Completed Studies During Hospitalization Category Date Time Status CT abdomen pelvis w con* [id number] Stat Cat Scan 07/11/22 19:34 Completed Pending at discharge Category Date Time Status Blood Culture Stat Lab 07/11/22 19:37 Results Wound Culture and Gram Stain Stat Lab 07/11/22 19:46 Results Radiology Impressions Abdomen/Pelvis CT 07/11/22 19:34 IMPRESSION: 1. There is an abscess in the subcutaneous soft tissues of the lower abdomen/pelvis extending into the underlying rectus abdominus muscle with adjacent soft tissue cellulitis as described above. 2. Splenomegaly. Laboratory Results WBC 7.4 10^3/uL (4.0-10.0) 07/13/22 06:16 RBC 3.06 10^6/uL (4.1-5.3) L 07/13/22 06:16 Hgb 8.1 g/dL (11.5-15.3) L 07/13/22 06:16 Hct 27.2 % (37.0-47.0) L 07/13/22 06:16 MCV 88.9 fl (81-99) 07/13/22 06:16 MCH 26.5 pg (28.0-34.0) L 07/13/22 06:16 MCHC 29.8 g/dL (30.0-36.0) L 07/13/22 06:16 RDW 15.0 % (12.1-15.1) 07/13/22 06:16 Plt Count 371 10^3/cmm (130-400) 07/13/22 06:16 MPV 9.7 fL (7.4-10.4) 07/13/22 06:16 Neut % (Auto) 60.6 % 07/13/22 06:16 Lymph % (Auto) 22.6 % 07/13/22 06:16 Toombs % (Auto) 10.9 % 07/13/22 06:16 Eos % (Auto) 4.8 % 07/13/22 06:16 Baso % (Auto) 0.4 % 07/13/22 06:16 Neut # (Auto) 4.46 10^3/uL (1.8-7.7) 07/13/22 06:16 Lymph # (Auto) 1.7 10^3/uL (0.8-4.8) 07/13/22 06:16 Toombs # (Auto) 0.8 10^3/uL (0.2-0.9) 07/13/22 06:16 Eos # (Auto) 0.4 10^3/uL (0.0-0.8) 07/13/22 06:16 Baso # (Auto) 0.0 10^3/uL (0.0-0.1) 07/13/22 06:16 Nucleated RBC % (auto) 0 % 07/13/22 06:16 Nucleated RBCs # 0.0 /100WBC 07/13/22 06:16 Sodium 137 mmol/L (136-145) 07/12/22 04:03 Potassium 3.9 mmol/L (3.5-5.1) 07/12/22 04:03 Chloride 102 mmol/L (98-107) 07/12/22 04:03 Carbon Dioxide 25 mmol/L (22-29) 07/12/22 04:03 Anion Gap 13.9 (5-19) 07/12/22 04:03 BUN 7 mg/dL (6-20) 07/12/22 04:03 Creatinine 0.7 mg/dL (0.5-0.9) 07/12/22 04:03 GFR Calculation 97.0 mL/min (90-130) 07/12/22 04:03 Glucose 100 mg/dL (65-115) 07/12/22 04:03 Calculated Osmolality 282 mOsm/kg (285-295) L 07/12/22 04:03 Lactic Acid 0.8 mmol/L (0.5-2.2) 07/11/22 19:44 Calcium 8.4 mg/dL (8.5-10.5) L 07/12/22 04:03 Total Bilirubin 0.3 mg/dL (0.15-1.2) 07/12/22 04:03 AST 13 U/L (0-32) 07/12/22 04:03 ALT 13 U/L (0-33) 07/12/22 04:03 Alkaline Phosphatase 86 U/L (35-105) 07/12/22 04:03 Total Protein 6.7 g/dL (6.6-8.7) 07/12/22 04:03 Albumin 3.5 g/dL (3.5-5.2) 07/12/22 04:03 Globulin 3.2 g/dL (1.3-4.6) 07/12/22 04:03 Vancomycin Trough 16.3 ug/mL (10-15) H 07/13/22 06:16 Vitals Last Vital Signs Temp 98.6 F 07/13/22 03:58 Pulse 91 07/13/22 09:17 Resp 15 07/13/22 03:58 BP 133/73 07/13/22 09:17 Pulse Ox 97 07/13/22 03:54 O2 Del Method 07/11/22 23:43 Discharge Plan Discharge Patient Disposition: Home Condition: Stable Prescriptions: Continued Gummies 400 mcg-35 mg- 25 mg-5 mg tablet,chewable 1 tab PO DAILY ferrous sulfate [Iron (ferrous sulfate)] 325 mg (65 mg iron) tablet 325 mg PO DAILY ibuprofen 800 mg Tablet 800 mg PO TID Qty: 30 0RF Discontinued ondansetron HCl 4 mg tablet 4 mg PO Q6H PRN (Reason: nausea and vomiting) Qty: 30 2RF docusate sodium 100 mg Capsule 100 mg PO BID Qty: 60 0RF Reglan 10 mg PO Q6H PRN (Reason: Nausea) Discharge Orders: Discharge Order (Routine); Ordered 07/13/22 Ordered By: Yesica Brush Referrals: Latasha Hastings MD [Primary Care Provider] - Discharge Diet: Regular Discharge Activity: Increase activity as tolerated Patient Instructions: Opioid Safety Discharge Attestations [employer] TECHNICIAN Time Spent in Discharge Care*: greater than 30 min Coding Level of Care Code Acute Code for Chg Fwd Diagnoses Postoperative wound infection T81.49XA Postoperative hematoma History of wound infection Z86.19 Morbid obesity with BMI of 70 and over, adult E66.01; Z68.45
[2022-07-13 12:57] VITALS: BP 144/79; PULSE 97
[2022-07-13 13:29] VITALS: BP 144/79; PULSE 97
== END 2022-07-13 13:23 | disposition home health service (06) | DRG 776 ==
LOC: ER 22:09 → OBGYN 22:21
PROVIDERS: Physician Assistant; Admitting Provider Obstetrics & Gynecology; Emergency Provider Emergency Medicine; PCP Obstetrics & Gynecology; Visit Provider Obstetrics & Gynecology
DX: O86.01 Infection of obstetric surgical wound, superficial incisional site (principal); Z68.45 Body mass index [BMI] 70 or greater, adult; O90.2 Hematoma of obstetric wound; E66.01 Morbid (severe) obesity due to excess calories
CPT/HCPCS: 12345; 36415; 74177; 80053; 80202; 83605; 85025; 87040; 87070; 87075; 87077; 87186; 87205; 96365; 96367; 99285; J2543; J3370; J7040; Q9967